=== PATIENT | male | born 1955 ===

== ENCOUNTER 2018-01-14 16:44 | Emergency (ER) | payer OTHER ==
[2018-01-14] MEDS ORDERED: EPINEPHrine 1:10,000 1 MG/10 ML Syringe IV ONE (16:45)
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
== END 2018-01-14 17:51 | disposition expired ==
LOC: DL.ED 16:44
DX: I46.9 Cardiac arrest, cause unspecified (principal)
CPT/HCPCS: 92950; 96374; 99285; J0171